=== PATIENT | male | born 1980 | race Caucasian/White ===

== ENCOUNTER 2019-08-10 18:05 | Emergency (ER) | payer OTHER ==
[~2019-08-10] VITALS: Ht 182.9 cm; Wt 103.1 kg
[2019-08-10 18:35] LABS: BASO % 0.3 % (0.0-1.0); EOS # 0.1 10^3/uL (0.0-0.5); EOS % 1.2 % (0.0-3.0); HEMOGLOBIN 15.1 g/dl (13.5-17.5); LYMPH # 4.1 10^3/uL (1.5-5.0); LYMPH % 39.4 % (24.0-44.0); MEAN CORPUSCULAR HEMOGLOBIN 29.8 pg (27.0-33.0); MEAN CORPUSCULAR HGB CONC 34.3 g/dl (32.0-36.5); MONO # 0.8 10^3/uL (0.0-0.8); MONO % 7.3 % (0.0-5.0); NEUTROPHILS # 5.4 10^3/uL (1.5-8.5); NEUTROPHILS % 51.6 % (36.0-66.0); PLATELET COUNT, AUTOMATED 334 10^3/uL (150-450); RED BLOOD COUNT 5.06 10^6/uL (4.30-6.10); WHITE BLOOD COUNT 10.5 10^3/uL (4.0-10.0)
--- NOTE | 2019-08-10 18:58 | REP ---
PA and lateral chest: There are no comparisons. The lung staley are clear. The cardiac size is normal. The jerald, mediastinum, and skeletal structures are unremarkable. Impression: Negative PA and lateral chest. Electronically Signed by Hector Vasquez MD 08/10/2019 06:50 P
[2019-08-10 19:04] LABS: BLOOD UREA NITROGEN 13 MG/DL (7-18); CALCIUM LEVEL 8.6 MG/DL (8.5-10.1); CARBON DIOXIDE LEVEL 28 MEQ/L (21-32); CHLORIDE LEVEL 107 MEQ/L (98-107); CK-MB VALUE MASS < 1.0 NG/ML (<3.6); CPK CREATINE PHOSPHOKINASE 120 U/L (39-308); CREATININE FOR GFR 0.94 MG/DL (0.70-1.30); GLOMERULAR FILTRATION RATE > 60.0 (>60); GLUCOSE, FASTING 108 MG/DL (70-100); MB/CK RELATIVE INDEX 0.83 (< OR =4); POTASSIUM SERUM 4.3 MEQ/L (3.5-5.1); SODIUM LEVEL 139 MEQ/L (136-145); TROPONIN I < 0.02 NG/ML (< 0.10)
[2019-08-10] MEDS ORDERED: ISOVUE-370 76% 100ML VIAL (Q9967) As Ordered ONE (19:48)
[2019-08-10] MEDS ORDERED: ASPIRIN 81 MG CHEW TABLET PO ONE (20:00)
[2019-08-10 20:10] LABS: ALBUMIN 4.2 GM/DL (3.2-5.2); ALT/SGPT 38 U/L (12-78); BILIRUBIN,DIRECT < 0.1 MG/DL (0.0-0.2); BILIRUBIN,TOTAL 0.4 MG/DL (0.2-1.0); LIPASE 131 U/L (73-393); TOTAL PROTEIN 7.3 GM/DL (6.4-8.2)
--- NOTE | 2019-08-10 20:43 | ECGEPIP ---
[facility] - ED Test Date: 2019-08-10 Pat Name: EMILY CHILDS Department: Room: - Gender: Male [employer] Operator: justin : 1980 Requested By: Fabien Pollock Order Number: [id number] Reading MD: Neida Hendrix Measurements Intervals [place] Rate: 69 P: 41 TN: 162 QRS: -2 QRSD: 83 T: 21 QT: 388 QTc: 416 Interpretive Statements SINUS RHYTHM NO PRIOR Electronically Signed on 08-10-2019 20:43:09 EDT by Neida Hendrix
--- NOTE | 2019-08-10 21:02 | REPVR ---
PROCEDURE INFORMATION: Exam: CT Angiography Chest With Contrast Exam date and time: 08/10/2019 8:02 PM Age: 39 years old Clinical indication: Chest pain; Type not specified TECHNIQUE: Imaging protocol: Computed tomographic angiography of the chest with intravenous contrast. 3D rendering: MIP and/or 3D reconstructed images were created by the technologist. Radiation optimization: All CT scans at this facility use at least one of these dose optimization techniques: automated exposure control; mA and/or kV adjustment per patient size (includes targeted exams where dose is matched to clinical indication); or iterative reconstruction. Contrast material: ISOVUE 370; Contrast volume: 100 ml; Contrast route: IV; COMPARISON: CR Chest, 2 view PA, Lat 08/10/2019 6:31 PM FINDINGS: Pulmonary arteries: The main pulmonary artery measures 26 mm. No pulmonary embolism is identified. Aorta: The ascending thoracic aorta measures 31 mm. Other arteries: The left vertebral artery originates directly from the arch. Lungs: Unremarkable. No consolidation. No masses. Pleural space: Unremarkable. No pneumothorax. No pleural effusion. Heart: Unremarkable. No cardiomegaly. No pericardial effusion. Lymph nodes: Unremarkable. No enlarged lymph nodes. Bones/joints: Unremarkable. No acute fracture. Soft tissues: Unremarkable. IMPRESSION: Negative CTA chest. No pulmonary embolism is identified. Electronically signed by: Drew Alfaro On 08/10/2019 21:02:04 PM
[2019-08-10 23:27] LABS: CK-MB VALUE MASS < 1.0 NG/ML (<3.6); CPK CREATINE PHOSPHOKINASE 110 U/L (39-308); MB/CK RELATIVE INDEX 0.91 (< OR =4); TROPONIN I < 0.02 NG/ML (< 0.10)
[2019-08-10 23:30] VITALS: BP 112/57
--- NOTE | 2019-08-12 20:39 | ECGEPIP ---
[facility] - ED Test Date: 2019-08-10 Pat Name: EMILY CHILDS Department: Room: - Gender: Male Entry Level Financial Analyst: HERBERTH : 1980 Requested By: Fabien Pollock Order Number: [id number] Reading MD: Neida Hendrix Measurements Intervals [place] Rate: 67 P: 54 NC: 192 QRS: -18 QRSD: 78 T: 14 QT: 378 QTc: 400 Interpretive Statements SINUS RHYTHM SIMILAR 08/10/19 Electronically Signed on 08-12-2019 20:39:29 EDT by Neida Hendrix
== END 2019-08-10 23:58 | disposition home or self-care (01) ==
LOC: M ED 18:05
DX: R07.9 Chest pain, unspecified (principal); E78.5 Hyperlipidemia, unspecified; F17.210 Nicotine dependence, cigarettes, uncomplicated
CPT/HCPCS: 36415; 71046; 71275; 80048; 80076; 82550; 82553; 83690; 84484; 85025; 93005; 99284; Q9967

== ENCOUNTER 2021-10-17 02:00 | Emergency (ER) | payer OTHER ==
[~2021-10-17] VITALS: Ht 185.4 cm; Wt 102.9 kg
[2021-10-17 02:29] LABS: HEMATOCRIT 44.5 % (42.0-52.0); HEMOGLOBIN 16.2 g/dl (13.5-17.5); MEAN CORPUSCULAR HEMOGLOBIN 30.8 pg (27.0-33.0); MEAN CORPUSCULAR HGB CONC 36.4 g/dl (32.0-36.5); MEAN CORPUSCULAR VOLUME 84.6 fl (80.0-96.0); PLATELET COUNT, AUTOMATED 349 10^3/uL (150-450); RED BLOOD COUNT 5.26 10^6/uL (4.30-6.10); WHITE BLOOD COUNT 16.2 10^3/uL (4.0-10.0)
[2021-10-17] MEDS ORDERED: ACETAMINOPHEN 325 MG TAB PO ONE (02:35)
[2021-10-17 03:08] LABS: CK-MB VALUE MASS < 1.0 NG/ML (<3.6); CPK CREATINE PHOSPHOKINASE 233 U/L (39-308); MB/CK RELATIVE INDEX 0.43 (< OR =4)
[2021-10-17 03:09] LABS: BLOOD UREA NITROGEN 15 MG/DL (7-18); CARBON DIOXIDE LEVEL 25 MEQ/L (21-32); CHLORIDE LEVEL 108 MEQ/L (98-107); CREATININE FOR GFR 0.97 MG/DL (0.70-1.30); GLOMERULAR FILTRATION RATE > 60.0 (>60); GLUCOSE, FASTING 167 MG/DL (70-100); POTASSIUM SERUM 4.9 MEQ/L (3.5-5.1); SODIUM LEVEL 138 MEQ/L (136-145)
[2021-10-17 03:10] LABS: CALCIUM LEVEL 8.4 MG/DL (8.5-10.1)
[2021-10-17] MEDS ORDERED: diazePAM 10MG/2ML SYRINGE (J3360 PER 5MG) IV ONE (05:35)
[2021-10-17] MEDS ORDERED: MORPHINE 2 MG/ML 1ML VIAL IV ONE (05:35)
[2021-10-17] MEDS ORDERED: NS 1,000 ML IV ONE (05:40)
[2021-10-17] MEDS ORDERED: ISOVUE-370 76% 100ML VIAL As Ordered ONE (06:02)
[2021-10-17] MEDS ORDERED: CYCL5TAB PO (06:53)
[2021-10-17 07:00] VITALS: BP 134/76
== END 2021-10-17 07:13 | disposition home or self-care (01) ==
LOC: M ED 02:00
DX: R07.9 Chest pain, unspecified (principal); R94.31 Abnormal electrocardiogram [ECG] [EKG]; F17.200 Nicotine dependence, unspecified, uncomplicated; Z79.899 Other long term (current) drug therapy
CPT/HCPCS: 71046; 71275; 80048; 81001; 82550; 82553; 84484; 85027; 85379; 87040; 87486; 87581; 87633; 87798; 93005; 96361; 96374; 99284; J2270; J3360; Q9967